=== PATIENT | female | born 1960 | race Caucasian/White ===

== ENCOUNTER 2021-10-10 13:00 | Inpatient (IN) | payer MEDICAID ==
[~2021-10-10] VITALS: Ht 175.3 cm; Wt 78.2 kg
[~2021-10-10 13:00] MED LIST: RINGERS SOLUTION,LACTATED 1,000 ML IV ONE
[2021-10-14] MEDS ORDERED: MELO-381 PO (15:29)
[2021-10-14] MEDS ORDERED: GABA-1181 PO (15:30)
[2021-10-15] MEDS ORDERED: TRAZ-257 PO (10:28)
[2021-10-15] MEDS ORDERED: METH-812 PO (10:28)
[2021-10-16] MEDS ORDERED: RINGERS SOLUTION,LACTATED 1,000 ML IV ONE (10:00)
[2021-10-16 11:23] LABS: COVID AG,FIA SOURCE NASOPHARYNGEAL
[2021-10-16 11:57] LABS: BASOPHILS % (AUTO) 0.6 % (0.0-2.0); EOSINOPHILS % (AUTO) 1.8 % (1.0-6.0); HEMATOCRIT 40.8 % (36-46); HEMOGLOBIN 13.7 g/dL (12.0-16.0); LYMPHOCYTES # (AUTO) 1.9 K/uL (1.0-4.8); LYMPHOCYTES % (AUTO) 28.4 % (22.0-44.0); MEAN CORPUSCULAR HEMOGLOBIN 27.8 pg (26.0-34.0); MEAN CORPUSCULAR HGB CONC 33.7 G/dL (31.0-37.0); MEAN CORPUSCULAR VOLUME 82 fL (80-100); MONOCYTES # (AUTO) 0.4 K/uL (0.1-1.0); MONOCYTES % (AUTO) 6.5 % (2.0-9.0); NEUTROPHILS # (AUTO) 4.2 K/uL (1.8-7.7); NEUTROPHILS % (AUTO) 62.7 % (40.0-70.0); PLATELET COUNT (AUTO) 237 K/uL (150-450); RED BLOOD CELL COUNT(AUTO) 4.95 MIL/uL (4.00-5.20); RED CELL DISTRIBUTION WIDTH 14.5 % (11.5-14.5)
[2021-10-16 12:06] LABS: ANION GAP 8 mmol/L (8-16); CARBON DIOXIDE 29 mmol/L (22-29); CHLORIDE 102 mmol/L (98-107); CREATININE 0.91 mg/dL (0.60-1.30); GLUCOSE,RANDOM 89 mg/dL (70-110); POTASSIUM 4.1 mmol/L (3.5-5.1); SODIUM SERUM 139 mmol/L (136-145); UREA NITROGEN, BLOOD 22 mg/dL (7-18)
[2021-10-16 12:08] LABS: GLOMERULAR FILTR. RATE CALC > 60 mL/min (>60)
[2021-10-16 12:11] LABS: PROTHROMBIN TIME 10.7 SEC (9.4-11.6)
[2021-10-16] MEDS ORDERED: SODIUM CHLORIDE 0.9% 500 ML IV ONE ×2 (12:13→20:51)
[2021-10-16] MEDS ORDERED: BUPIVACAINE HCL/PF 0.25% 30 ML VIAL ONE (12:36)
[2021-10-16] MEDS ORDERED: THROMBIN, BOVINE 20000 UNITS/VIAL POWDER TP ONE (12:36)
[2021-10-16] MEDS ORDERED: GELATIN SPONGE,ABSORBABLE 50 MM TP ONE (12:36)
[2021-10-16] MEDS ORDERED: VANCOMYCIN HCL 1 GM/VIAL ONE ×2 (12:38→12:46)
[2021-10-16] MEDS ORDERED: MINERAL OIL 10 ML VIAL TP ONE (12:46)
[2021-10-16] MEDS ORDERED: BUPIVACAINE LIPOSOME/PF 1.3%-13.3MG/ML SUSPENSION 10 ML VIAL INJ ONE (15:15)
[2021-10-16] MEDS ORDERED: RINGERS SOLUTION,LACTATED 0 ML IV ONE (15:24)
[2021-10-16] MEDS ORDERED: ONDANSETRON HCL 4 MG/2 ML VIAL IVP PRN (16:15)
[2021-10-16] MEDS ORDERED: BACITRACIN 28 GM OINTMENT TP PRN (16:15)
[2021-10-16] MEDS ORDERED: DiphenhydrAMINE HCL 50 MG/ML VIAL IVP PRN (16:15)
[2021-10-16] MEDS ORDERED: BENZOCAINE/MENTHOL LOZENGE PO PRN (16:15)
[2021-10-16] MEDS ORDERED: ZOLPIDEM TARTRATE 10 MG TABLET PO PRN (16:15)
[2021-10-16] MEDS ORDERED: MAG HYDROX/AL HYDROX/SIMETH 30 ML SUSP UDCUP PO PRN (16:15)
[2021-10-16] MEDS ORDERED: DEXAMETHASONE SOD PHOS 4 MG/ML VIAL IVP PRN (16:15)
[2021-10-16] MEDS ORDERED: ACETAMINOPHEN 325 MG TABLET PO PRN ×2 (16:15→20:00)
[2021-10-16] MEDS ORDERED: FentaNYL CITRATE PF 100 MCG/2 ML VIAL IVP PRN (16:30)
[2021-10-16] MEDS ORDERED: HYDROmorphone 2 MG/ML VIAL IVP PRN (16:30)
[2021-10-16] MEDS ORDERED: FentaNYL CITRATE PF 100 MCG/2 ML VIAL ONE (16:34)
[2021-10-16 17:59] VITALS: BP 138/85
[2021-10-16] MEDS: HYDROmorphone 2 MG/ML VIAL IVP PRN ×3 (18:07→23:28)
[2021-10-16] MEDS ORDERED: HYDROmorphone 2 MG/ML VIAL IVP ONE (19:00)
[2021-10-16] MEDS ORDERED: IPRATROPIUM BROMIDE 0.5 MG/2.5 ML NEB SOLUTION NEB PRN (20:00)
[2021-10-16] MEDS ORDERED: ALBUTEROL SULFATE 2.5 MG/0.5 ML NEB SOLUTION NEB PRN (20:00)
[2021-10-16] MEDS ORDERED: MAGNESIUM HYDROXIDE SUSPENSION 30 ML UDCUP PO PRN (20:00)
[2021-10-16] MEDS ORDERED: ZOLPIDEM TARTRATE 5 MG TABLET PO PRN (20:00)
[2021-10-16] MEDS ORDERED: BISACODYL 10 MG RECTAL RECTAL SUPPOSITORY PR PRN (20:00)
[2021-10-16] MEDS ORDERED: OxyCODONE HCL/ACETAMINOPHEN 10-325 MG TABLET PO PRN (20:00)
[2021-10-16] MEDS: DOCUSATE SODIUM 100 MG CAPSULE PO SCH (20:56)
[2021-10-16] MEDS: OXYGEN THERAPY IH SCH (20:56)
[2021-10-16 21:02] VITALS: BP 134/74
[2021-10-16] MEDS: CeFAZolin 1 GM/DEXTROSE 50 ML IV SCH (21:12)
[2021-10-16 23:59] VITALS: BP 142/67
[2021-10-17] MEDS ORDERED: PROPOFOL 1% 20 ML VIAL IVP ONE (01:14)
[2021-10-17] MEDS ORDERED: DEXAMETHASONE SOD PHOS 4 MG/ML VIAL IVP ONE (01:14)
[2021-10-17] MEDS ORDERED: MIDAZOLAM HCL 2 MG/2 ML VIAL IVP ONE (01:14)
[2021-10-17] MEDS ORDERED: HYDROmorphone 2 MG/ML VIAL IVP ONE (01:14)
[2021-10-17] MEDS ORDERED: LIDOCAINE/PF 2% 5 ML VIAL IM ONE (01:14)
[2021-10-17] MEDS ORDERED: ROCURONIUM BROMIDE 10 MG/ML 5 ML VIAL IVP ONE (01:14)
[2021-10-17] MEDS ORDERED: FentaNYL CITRATE PF 100 MCG/2 ML VIAL IVP ONE (01:14)
[2021-10-17] MEDS ORDERED: KETAMINE HCL 50 MG/ML 10 ML VIAL IVP ONE (01:14)
[2021-10-17] MEDS ORDERED: ONDANSETRON HCL 4 MG/2 ML VIAL IVP ONE (01:14)
[2021-10-17] MEDS ORDERED: 0.9% SODIUM CHLORIDE 10 ML VIAL IVP ONE (01:14)
[2021-10-17] MEDS: OxyCODONE HCL 5 MG IR TABLET PO PRN ×4 (01:55→12:39)
[2021-10-17] MEDS: HYDROmorphone 2 MG/ML VIAL IVP PRN ×7 (04:15→23:27)
[2021-10-17] MEDS: CeFAZolin 1 GM/DEXTROSE 50 ML IV SCH (04:15)
[2021-10-17 04:30] VITALS: BP 110/75
[2021-10-17 06:53] LABS: BASOPHILS % (AUTO) 0.1 % (0.0-2.0); EOSINOPHILS % (AUTO) 0 % (1.0-6.0); HEMATOCRIT 38.9 % (36-46); HEMOGLOBIN 12.9 g/dL (12.0-16.0); LYMPHOCYTES # (AUTO) 1.5 K/uL (1.0-4.8); LYMPHOCYTES % (AUTO) 10.4 % (22.0-44.0); MEAN CORPUSCULAR HEMOGLOBIN 27.4 pg (26.0-34.0); MEAN CORPUSCULAR HGB CONC 33.1 G/dL (31.0-37.0); MEAN CORPUSCULAR VOLUME 83 fL (80-100); MONOCYTES # (AUTO) 1.1 K/uL (0.1-1.0); MONOCYTES % (AUTO) 7.6 % (2.0-9.0); NEUTROPHILS % (AUTO) 81.9 % (40.0-70.0); PLATELET COUNT (AUTO) 253 K/uL (150-450); RED CELL DISTRIBUTION WIDTH 14.2 % (11.5-14.5)
[2021-10-17 07:11] VITALS: BP 127/71
[2021-10-17 07:16] LABS: ANION GAP 7 mmol/L (8-16); CALCIUM, TOTAL 8.8 mg/dL (8.8-10.5); CARBON DIOXIDE 29 mmol/L (22-29); CHLORIDE 102 mmol/L (98-107); GLOMERULAR FILTR. RATE CALC > 60 mL/min (>60); GLUCOSE,RANDOM 109 mg/dL (70-110); POTASSIUM 4.2 mmol/L (3.5-5.1); SODIUM SERUM 138 mmol/L (136-145); UREA NITROGEN, BLOOD 18 mg/dL (7-18)
[2021-10-17] MEDS: PANTOPRAZOLE SODIUM 40 MG DR TABLET PO SCH (08:10)
[2021-10-17] MEDS: DOCUSATE SODIUM 100 MG CAPSULE PO SCH ×2 (08:10→20:29)
[2021-10-17] MEDS: OXYGEN THERAPY IH SCH ×2 (08:22→19:41)
[2021-10-17 11:08] VITALS: BP 132/85
[2021-10-17] MEDS: GABAPENTIN 100 MG CAPSULE PO SCH ×3 (12:39→23:27)
[2021-10-17 15:47] VITALS: BP 118/59
[2021-10-17] MEDS: METHOCARBAMOL 500 MG TABLET PO SCH ×2 (16:55→20:29)
[2021-10-17 20:43] VITALS: BP 146/94
[2021-10-17] MEDS: ONDANSETRON HCL 4 MG/2 ML VIAL IVP PRN (22:30)
[2021-10-18 00:28] VITALS: BP 126/49
[2021-10-18] MEDS: ONDANSETRON HCL 4 MG/2 ML VIAL IVP PRN ×5 (02:38→20:34)
[2021-10-18] MEDS: OxyCODONE HCL 5 MG IR TABLET PO PRN ×2 (02:39→05:56)
[2021-10-18] MEDS: HYDROmorphone 2 MG/ML VIAL IVP PRN ×5 (03:36→21:05)
[2021-10-18 06:08] VITALS: BP 125/64
[2021-10-18 07:38] VITALS: BP 116/57
[2021-10-18] MEDS: OXYGEN THERAPY IH SCH ×2 (08:00→20:00)
[2021-10-18] MEDS: METHOCARBAMOL 500 MG TABLET PO SCH (09:03)
[2021-10-18] MEDS: PANTOPRAZOLE SODIUM 40 MG DR TABLET PO SCH (09:03)
[2021-10-18] MEDS: DOCUSATE SODIUM 100 MG CAPSULE PO SCH ×2 (09:03→20:34)
[2021-10-18] MEDS: GABAPENTIN 100 MG CAPSULE PO SCH ×3 (09:03→23:25)
[2021-10-18 11:34] VITALS: BP 117/60
[2021-10-18] MEDS: METHOCARBAMOL 750 MG TABLET PO SCH ×2 (15:48→21:04)
[2021-10-18 15:51] VITALS: BP 134/77
[2021-10-18 20:30] VITALS: BP 121/73
[2021-10-19] MEDS: ONDANSETRON HCL 4 MG/2 ML VIAL IVP PRN ×5 (01:35→22:31)
[2021-10-19] MEDS: HYDROmorphone 2 MG/ML VIAL IVP PRN ×2 (02:00→06:04)
[2021-10-19 04:07] VITALS: BP 111/69
[2021-10-19 06:34] LABS: BASOPHILS % (AUTO) 0.5 % (0.0-2.0); HEMATOCRIT 42.2 % (36-46); LYMPHOCYTES # (AUTO) 2.6 K/uL (1.0-4.8); LYMPHOCYTES % (AUTO) 17.1 % (22.0-44.0); MEAN CORPUSCULAR HEMOGLOBIN 27.6 pg (26.0-34.0); MEAN CORPUSCULAR HGB CONC 33.2 G/dL (31.0-37.0); MEAN CORPUSCULAR VOLUME 83 fL (80-100); MONOCYTES # (AUTO) 1.3 K/uL (0.1-1.0); MONOCYTES % (AUTO) 8.5 % (2.0-9.0); NEUTROPHILS # (AUTO) 11.2 K/uL (1.8-7.7); NEUTROPHILS % (AUTO) 72.9 % (40.0-70.0); RED BLOOD CELL COUNT(AUTO) 5.08 MIL/uL (4.00-5.20); RED CELL DISTRIBUTION WIDTH 14.4 % (11.5-14.5)
[2021-10-19 07:42] LABS: PLATELET COUNT (AUTO) 252 K/uL (150-450)
[2021-10-19] MEDS: OXYGEN THERAPY IH SCH ×2 (08:00→21:05)
[2021-10-19 08:04] VITALS: BP 115/70
[2021-10-19] MEDS: METHOCARBAMOL 750 MG TABLET PO SCH ×3 (10:26→21:05)
[2021-10-19] MEDS: DOCUSATE SODIUM 100 MG CAPSULE PO SCH ×2 (10:26→21:04)
[2021-10-19] MEDS: GABAPENTIN 100 MG CAPSULE PO SCH ×3 (10:27→23:42)
[2021-10-19] MEDS: HYDROmorphone HCL 2 MG TABLET PO PRN ×3 (10:27→22:32)
[2021-10-19] MEDS: PANTOPRAZOLE SODIUM 40 MG DR TABLET PO SCH (10:27)
[2021-10-19 15:20] VITALS: BP 120/76
[2021-10-19] MEDS ORDERED: BENZOCAINE/MENTHOL/ZINC CL 20% 11.9 GM GEL TP PRN (15:30)
[2021-10-19 19:50] VITALS: BP 121/79
[2021-10-20 04:20] VITALS: BP 124/78
[2021-10-20 07:24] VITALS: BP 120/68
[2021-10-20] MEDS: DOCUSATE SODIUM 100 MG CAPSULE PO SCH (08:14)
[2021-10-20] MEDS: GABAPENTIN 100 MG CAPSULE PO SCH ×2 (08:14→15:39)
[2021-10-20] MEDS: METHOCARBAMOL 750 MG TABLET PO SCH ×2 (08:15→15:39)
[2021-10-20] MEDS: PANTOPRAZOLE SODIUM 40 MG DR TABLET PO SCH (08:15)
[2021-10-20] MEDS: OXYGEN THERAPY IH SCH (08:17)
[2021-10-20] MEDS ORDERED: HYDR2TAB37 PO (12:29)
[2021-10-20] MEDS ORDERED: ONDA-104 PO (12:30)
[2021-10-20 14:21] LABS: BASOPHILS % (AUTO) 0.7 % (0.0-2.0); HEMATOCRIT 41.7 % (36-46); HEMOGLOBIN 14.1 g/dL (12.0-16.0); LYMPHOCYTES # (AUTO) 2.4 K/uL (1.0-4.8); LYMPHOCYTES % (AUTO) 20.6 % (22.0-44.0); MEAN CORPUSCULAR HEMOGLOBIN 27.3 pg (26.0-34.0); MEAN CORPUSCULAR HGB CONC 33.7 G/dL (31.0-37.0); MEAN CORPUSCULAR VOLUME 81 fL (80-100); MONOCYTES % (AUTO) 8.7 % (2.0-9.0); NEUTROPHILS # (AUTO) 7.8 K/uL (1.8-7.7); PLATELET COUNT (AUTO) 333 K/uL (150-450); RED BLOOD CELL COUNT(AUTO) 5.14 MIL/uL (4.00-5.20)
[2021-10-20 15:32] VITALS: BP 123/71
[2021-10-20] MEDS ORDERED: ONDANSETRON HCL 4 MG/2 ML VIAL PO PRN (16:15)
== END 2021-10-20 16:40 | disposition home health service (06) | DRG 321 ==
LOC: 6S 10-16 10:25 → 5N 10-16 17:39 → 6S 10-18 18:00
PROVIDERS: ADMIT Neurological Surgery; ATTEND Neurological Surgery
PROC: 4A11X4G Monitoring of Peripheral Nervous Electrical Activity, Intraoperative, External Approach (ICD-10-PCS; 2021-10-16)
PROC: 0RG2071 Fusion of 2 or more Cervical Vertebral Joints with Autologous Tissue Substitute, Posterior Approach, Posterior Column, Open Approach (ICD-10-PCS; principal; 2021-10-16 13:15)
DX: M54.2 Cervicalgia (principal); D72.829 Elevated white blood cell count, unspecified; G89.29 Other chronic pain; Z20.822 Contact with and (suspected) exposure to COVID-19
CPT/HCPCS: 72040; 72125; 80048; 85025; 85610; 85730; 87081; 93005; 97163; 97166; 97535; G0238; J0690; J1100; J1170; J2250; J2405; J2704; J3010; J3370; J3490; J7040; J7120; Q9967